=== PATIENT | female | born 1990 | race Caucasian/White ===

== ENCOUNTER 2023-09-27 16:24 | Emergency (ER) | payer OTHER ==
[2023-09-27] MEDS ORDERED: Ibuprofen 200 MG TAB ONE (17:10)
[2023-09-27 17:13] LABS: #Basophils 0.03 10x3/uL (0.0-0.2); #Eosinphils 0.02 10x3/uL (0.0-0.5); #Monocytes 0.95 10x3/uL (0.0-1.1); #Neutrophils 5.66 10x3/uL (1.5-8.4); %Basophils 0.4 % (0.0-2.0); %Eosinophils 0.3 % (0.0-6.0); %Lymphocytes 7.4 % (18.0-47.0); %Monocytes 13.2 % (0.0-10.0); %Neutrophils 78.4 % (40.0-75.0); Hematocrit 40.2 % (34.9-44.5); Mean Corpuscular HGB CONC 34.8 g/dL (32.0-36.0); Mean Corpuscular Hemoglobin 30.2 pg (27.0-33.0); Mean Corpuscular Volume 86.6 fL (81.6-98.3); Mean Platelet Volume 10.1 fL (7.4-10.4); Platelet Count 283 10x3/uL (150-450); RBC Distribution Width 12.2 % (11.5-14.5); Red Blood Cell (RBC) Count 4.64 10x6/uL (3.90-5.03); White Blood Cell (WBC) Count 7.2 10x3/uL (3.5-10.5)
[2023-09-27 17:23] LABS: BHCG - Serum Negative (NEGATIVE); Pregs Control Background? CLEAR/WHITE (CLR/WHITE); Pregs Control Bar Appear? YES (CONTROL BAR)
[2023-09-27 17:29] LABS: ALT (SGPT) 10 U/L (8-55); AST (SGOT) 18 U/L (5-34); Albumin 4.2 g/dL (3.5-5.0); Alkaline Phosphatase 64 U/L (40-110); Anion Gap 14 mmol/L (10-20); BUN (Urea Nitrogen) 7 mg/dL (7.0-18.7); Bilirubin, Total 0.4 mg/dL (0.2-1.2); Calc. Creatinine Clearance 0 mL/min (70-130); Calcium 9.4 mg/dL (7.8-10.44); Carbon Dioxide 23 mmol/L (22-29); Chloride 105 mmol/L (98-107); Estimated GFR 115; Globulin 3.3 g/dL (2.4-3.5); Glucose 99 mg/dL (70-105); Potassium 3.7 mmol/L (3.5-5.1); Protein, Total 7.5 g/dL (6.0-8.3); Sodium 138 mmol/L (136-145)
[2023-09-27 17:53] LABS: Influenza A by NAA Not Detected (NotDetected); Influenza B by NAA Not Detected (NotDetected); SARS-CoV-2 NAA Rapid Test DETECTED (NotDetected)
== END 2023-09-27 18:57 | disposition home or self-care (01) ==
LOC: CSHERS 16:24
DX: U07.1 COVID-19 (principal); Z55.6 Problems related to health literacy
CPT/HCPCS: 71046; 80053; 84703; 85025; 85379; 93005; 94760; 96360

== ENCOUNTER 2023-09-29 17:02 | Emergency (ER) | payer OTHER ==
[2023-09-29] MEDS ORDERED: Metoclopramide HCl 10 MG (2 mL) VIAL ONE (17:31)
[2023-09-29] MEDS ORDERED: Acetaminophen 325 MG TAB ONE (17:31)
[2023-09-29] MEDS ORDERED: Pantoprazole 40 MG VIAL ONE (17:32)
[2023-09-29 17:46] LABS: #Basophils 0.03 10x3/uL (0.0-0.2); #Monocytes 0.59 10x3/uL (0.0-1.1); #Neutrophils 3.06 10x3/uL (1.5-8.4); %Basophils 0.5 % (0.0-2.0); %Eosinophils 1.8 % (0.0-6.0); %Lymphocytes 33.3 % (18.0-47.0); %Monocytes 10.4 % (0.0-10.0); %Neutrophils 53.8 % (40.0-75.0); Hematocrit 35.8 % (34.9-44.5); Hemoglobin 12.1 g/dL (12.0-15.5); Mean Corpuscular HGB CONC 33.8 g/dL (32.0-36.0); Mean Corpuscular Hemoglobin 29.8 pg (27.0-33.0); Mean Corpuscular Volume 88.2 fL (81.6-98.3); Mean Platelet Volume 10.3 fL (7.4-10.4); Platelet Count 232 10x3/uL (150-450); RBC Distribution Width 12.4 % (11.5-14.5); Red Blood Cell (RBC) Count 4.06 10x6/uL (3.90-5.03); White Blood Cell (WBC) Count 5.7 10x3/uL (3.5-10.5)
[2023-09-29 18:00] LABS: ALT (SGPT) 8 U/L (8-55); AST (SGOT) 14 U/L (5-34); Albumin 3.4 g/dL (3.5-5.0); Alkaline Phosphatase 50 U/L (40-110); Anion Gap 13 mmol/L (10-20); BUN (Urea Nitrogen) 6 mg/dL (7.0-18.7); Bilirubin, Total 0.2 mg/dL (0.2-1.2); Calc. Creatinine Clearance 0 mL/min (70-130); Calcium 8.7 mg/dL (7.8-10.44); Carbon Dioxide 22 mmol/L (22-29); Chloride 109 mmol/L (98-107); Estimated GFR 122; Globulin 2.9 g/dL (2.4-3.5); Glucose 85 mg/dL (70-105); Lipase 31 U/L (8-78); Potassium 3.3 mmol/L (3.5-5.1); Protein, Total 6.3 g/dL (6.0-8.3); Sodium 141 mmol/L (136-145)
[2023-09-29 18:05] LABS: Troponin I Less than 0.010 ng/mL (< 0.028)
== END 2023-09-29 19:04 | disposition home or self-care (01) ==
LOC: CSHERS 17:02
DX: U07.1 COVID-19 (principal)
CPT/HCPCS: 71045; 80053; 82274; 83690; 84484; 85025; 85379; 93005; 96361; 96374; 96375; C9113; J2765